=== PATIENT | male | born 1960 | race Caucasian/White ===

== ENCOUNTER 2019-12-24 09:00 | Outpatient (CLI) | payer BC, SELFPAY ==
--- NOTE | 2019-12-31 02:09 | SLEEP_ITS ---
Home Sleep Test DATE OF STUDY: 12/24/2019 REASON FOR THIS STUDY: Snoring, daytime fatigue, and grinding teeth. HISTORY: This patient is a 59-year-old male, 5 feet 9 inches tall, weighing 235 pounds with a body mass index of 34.7. His sleep complaints include being very tired on awakening for the last few years. He takes a nap on most days. The nap can last anywhere between 10 minutes to an hour. He has restless nighttime sleep with frequent position changes, rolling around, and loud snoring. It is frequently loud enough that others complain about it. He rarely awakens at night with heartburn, belching, or coughing. He never awakens at night short of breath. He occasionally has trouble sleeping with a cold. He does not gasp for breath at night. He rarely has breathing problems at night, witnessed by others. He occasionally sweats excessively at night. He does not notice his heart pounding or beating irregularly at night. He naps intentionally during the day. He does not fall asleep involuntarily. He does not fall asleep while driving and does not have loss of muscle tone with strong emotion. He does not have daytime difficulty due to excessive sleepiness. He does not feel paralyzed on waking or falling asleep. He occasionally has vivid dreamlike scenes upon awakening or falling asleep. He is never afraid to go to sleep. He occasionally has nightmares. He frequently remembers his dreams, frequently has racing thoughts. He occasionally feels sad, depressed, and anxious. He denies having muscular tension. He occasionally notices parts of his body jerking and he occasionally kicks at night. He denies crawly achy feelings in his legs and denies leg pain at night. He occasionally has morning jaw pain. He frequently grinds his teeth at night and has recently broken off some of his teeth due to grinding teeth. He occasionally is bothered by pain during the day, occasionally is awakened by pain at night. He never wakes up feeling stiff in the morning or have sore achy muscles. He occasionally wakes up with pain in the neck and spine. He has sinus headaches, fatigue, sexual problems, memory problems, feels unable to have a good time. Bedtime is 9:30 p.m., falling asleep within 30 minutes, usually less than 15 minutes, but he usually wakes up within an hour. He wakes 3 to 4 times at night and will be awake anywhere between 15 minutes or up to 3 hours. He falls asleep soon after waking as well as middle of the night and in the employee relations director hours, especially between 2 a.m. and 3 a.m. He wakes for the day at 6:30 a.m. When he awakens, he tries to return to sleep with relaxing thoughts. He has a low libido. He is currently retired. He does take naps and a short nap sometimes is refreshing. He feels better in the morning than other times a day. MEDICAL COMORBIDITIES: 1. Hyperlipidemia. 2. Hypertension. 3. Chronic right shoulder pain. 4. He previously had diabetes mellitus type 2, but no longer requires metformin as he has lost weight. MEDICATIONS: 1. Hydrochlorothiazide 25 mg a day. 2. Losartan 100 mg a day. 3. Atorvastatin 40 mg a day. 4. Allopurinol 300 mg a day. 5. Amlodipine 10 mg a day. HABITS: Previously smoked tobacco 25 years ago. Caffeine, 2 to 4 cups daily. Alcohol, 3 beers per month all at the same time. No recreational drugs. DESCRIPTION OF THE STUDY: On the [place] Sleepiness Scale, the score is 7. This was conducted as an unattended portable home sleep test using 4-channel monitoring including respiratory effort channel, oxygen desaturation channel, snoring channel, and heart rate channel. This study was scored using [facility] guidelines. Duration of the study with 8 hours 41 minutes. The apnea-hypopnea index is 10. Oxygen desaturation inde
== END 2019-12-24 09:01 | disposition home or self-care (01) ==
LOC: ANHCSM 09:01
PROVIDERS: PCP Family Medicine; Visit Provider Family Medicine
DX: G47.30 Sleep apnea, unspecified (principal)
CPT/HCPCS: 95806

== ENCOUNTER 2020-10-22 01:10 | Outpatient (CLI) | payer BC, SELFPAY ==
[2020-10-22 18:21] LABS: SARS-CoV-2 RNA PCR Negative
== END 2020-10-22 01:11 | disposition home or self-care (01) ==
LOC: ANHCOVIDDT 01:10
PROVIDERS: PCP Family Medicine; Visit Provider Internal Medicine Critical Care Medicine
DX: R68.89 Other general symptoms and signs (principal); Z20.828 Contact with and (suspected) exposure to other viral communicable diseases
CPT/HCPCS: 87635; C9803; U0003

== ENCOUNTER 2020-10-24 08:27 | Outpatient (CLI) | payer BC, SELFPAY ==
--- NOTE | 2020-12-08 16:18 | WPDSLEEPSTUD ---
Sleep Study Date of Study: 10/24/20 Ordering Provider: Rosalino Dent MD Interpreting Physician: Abigail Jones MD Sleep Study Type: CPAP Titration Height: 1.75 m Weight: 106.594 kg Body Mass Index: 34.7 Neck Circumference: 44.45 cm [place]: 9 Reason for Sleep Study Prior home sleep test on 12/24/2019 showing mild obstructive sleep apnea syndrome with an AHI of 10, desaturation to 75% with frequent snoring and 9% the study below 88% saturation, 45 minutes.With hypertension he is a candidate for treatment with PAP therapy. Sleep History Dinesh Greer is a 60 year old man with mild WAL[place]KA on a prior sleep study. His sleep complaints include being very tired on awakening for the last few years. He takes a nap on most days. The nap can last anywhere between 10 minutes to an hour. He has restless nighttime sleep with frequent position changes, rolling around, and loud snoring. It is frequently loud enough that others complain about it. He . He rarely awakens at night with heartburn, belching, or coughing. He never awakens at night short of breath. He occasionally has trouble sleeping with a cold. He does not gasp for breath at night. He rarely has breathing problems at night, witnessed by others. He occasionally sweats excessively at night. He does not notice his heart pounding or beating irregularly at night. He naps intentionally during the day. He does not fall asleep involuntarily. He does not fall asleep while driving and does not have loss of muscle tone with strong emotion. He does not have daytime difficulty due to excessive sleepiness. He does not feel paralyzed on waking or falling asleep. He occasionally has vivid dreamlike scenes upon awakening or falling asleep. He is never afraid to go to sleep. He occasionally has nightmares. He frequently remembers his dreams, frequently has racing thoughts. He occasionally feels sad, depressed, and anxious. He denies having muscular tension. He occasionally notices parts of his body jerking and he occasionally kicks at night. He denies crawly achy feelings in his legs and denies leg pain at night. He occasionally has morning jaw pain. He frequently grinds his teeth at night and has recently broken off some of his teeth due to grinding teeth. He occasionally is bothered by pain during the day, occasionally is awakened by pain at night. He never wakes up feeling stiff in the morning or have sore achy muscles. He occasionally wakes up with pain in the neck and spine. He has sinus headaches, fatigue, sexual problems, memory problems, feels unable to have a good time. Bedtime is 9:30 p.m., falling asleep within 30 minutes, usually less than 15 minutes, but he usually wakes up within an hour. He wakes 3 to 4 times at night and will be awake anywhere between 15 minutes or up to 3 hours. He falls asleep soon after waking as well as middle of the night and in the operator automated process hours, especially between 2 a.m. and 3 a.m. He wakes for the day at 6:30 a.m. When he awakens, he tries to return to sleep with relaxing thoughts. He has a low libido. He is currently retired. He does take naps and a short nap sometimes is refreshing. He feels better in the morning than other times a day. HABITS: Previously smoked tobacco 25 years ago. Caffeine, 2 to 4 cups daily. Alcohol, 3 beers per month all at the same time. No recreational drugs. [facility] Past Medical History Medical History Dyslipidemia Elevated PSA Essential (primary) hypertension Gout History of colon polyps History of type 2 diabetes mellitus Idiopathic gout Family History Family History Mother , at age 78 Cerebrovascular accident Hypertension Father , age 74 History of emphysema Other Diabetes mellitus Family history of coronary artery disease Gout Heart disease Soc
[2020-12-10 09:37] VITALS: BMI 34.7
== END 2020-10-24 08:28 | disposition home or self-care (01) ==
LOC: ANHCSM 08:35
PROVIDERS: PCP Family Medicine; Visit Provider Family Medicine
DX: G47.33 Obstructive sleep apnea (adult) (pediatric) (principal)
CPT/HCPCS: 95811

== ENCOUNTER 2020-12-02 01:09 | Outpatient (CLI) | payer BC, SELFPAY ==
[2020-12-02 19:22] LABS: SARS-CoV-2 RNA PCR Negative
== END 2020-12-02 01:10 | disposition home or self-care (01) ==
LOC: ANHCOVIDDT 01:10
PROVIDERS: PCP Family Medicine; Visit Provider Internal Medicine Gastroenterology
DX: Z01.812 Encounter for preprocedural laboratory examination (principal); Z20.822 Contact with and (suspected) exposure to COVID-19
CPT/HCPCS: C9803; U0003; U0005

== ENCOUNTER → 2020-12-30 03:37 | Outpatient (CLI) | payer BC, SELFPAY ==
[2020-12-31 18:18] LABS: SARS-CoV-2 RNA PCR Negative
== END ==
PROVIDERS: Family Provider Internal Medicine; PCP Family Medicine; Visit Provider Internal Medicine Gastroenterology
DX: Z01.812 Encounter for preprocedural laboratory examination (principal); Z20.822 Contact with and (suspected) exposure to COVID-19
CPT/HCPCS: C9803; U0003; U0005

== ENCOUNTER 2021-01-02 01:12 | Day surgery (SDC) | payer BC, SELFPAY ==
[2020-11-27 11:28] VITALS: BMI 34.4
--- NOTE | 2020-12-18 08:27 | PC.NURSE ---
Patient states there has been no medication or health history changes since last pre op interview. Patient given updated times and instructions on COVID and procedure day. Denies any questions at this time.
[2021-01-02 07:55] VITALS: BP 159/89; PULSE 62; RESP 18; TEMP 36.7; O2SAT 95; BMI 33.6
[2021-01-02] MEDS: LACTATED RINGERS 1,000 ML 150 ML IV CONT (08:02)
--- NOTE | 2021-01-02 09:03 | PM.HPGS ---
History of Present Illness History of Present Illness Consent: Risks, benefits, and alternatives have been discussed and questions answered. Patient agrees to proceed with procedure. Chief complaint: Neoplasm Screening Narrative: Dinesh Greer is a 60 year old male with colon polyp in 2013 Review of Systems Constitutional: Constitutional: Denies headache(s) and Denies weakness Eyes: Eyes: Denies blurry vision ENT: Reports Normal hearing present, Denies headache(s) and Denies neck pain Cardiovascular: Cardiovascular: Denies chest pain and Denies dyspnea Respiratory: Respiratory: Denies dyspnea Gastrointestinal: Gastrointestinal: Reports no additional gastrointestinal complaints Genitourinary: Genitourinary: Denies dysuria Musculoskeletal: Musculoskeletal: Denies neck pain Integumentary/Breasts: Skin/Breast: Denies dry skin Neurologic: Reports Normal hearing present, Denies headache(s) and Denies weakness Psychiatric: Psychiatric: Denies anxiety Endocrine: Endocrine: Denies change in body appearance Hematologic/Lymphatic: Hematologic/Lymphatic: Denies easy bleeding Allergic/Immunologic: Allergic/Immunologic: Denies urticaria PMFSH Past Medical History Medical History Dyslipidemia Elevated PSA Essential (primary) hypertension Gout History of colon polyps History of type 2 diabetes mellitus Idiopathic gout Family History Family History Mother , at age 78 Cerebrovascular accident Hypertension Father , age 74 History of emphysema Other Diabetes mellitus Family history of coronary artery disease Gout Heart disease Social History Social History Smoking packs per day: 1 Smoking cigarettes per day: 20.0 Years smoked: 15 Smoking pack-years: 15.00 Smoking status: Former smoker Tobacco type: cigarettes Smoking end date: 11/21/92 Alcohol intake: current Substance use: never Substance use type: does not use Living arrangements: with family Additional occupation/education comments: [employer] Spiritual care concerns: No Meds Home Medications and Allergies Home Medications Medication Instructions Recorded Confirmed Type allopurinol 300 mg tablet 300 mg PO DAILY #90 tablet 02/05/20 01/02/21 Rx atorvastatin 40 mg tablet 40 mg PO DAILY #90 tablet 02/05/20 01/02/21 Rx amlodipine 10 mg tablet See Rx Instructions .ROUTE 04/11/20 01/02/21 Rx .COMPLEX #90 tablet losartan 100 1 tablet PO DAILY #90 tablet 11/10/20 01/02/21 Rx mg-hydrochlorothiazide 25 mg tablet Allergies Allergy/AdvReac Type Severity Reaction Status Date / Time No Known Allergies Allergy Verified 01/02/21 07:52 Vital Signs Vital Signs - 24 hr 01/02/21 07:55 Temperature 98.1 F Pulse Rate 62 Respiratory Rate 18 Blood Pressure 159/89 H Pulse Oximetry 95 Exam Const: General: comfortable and no acute distress HENMT: General nose exam: Normal nares present Eyes: General: appearance normal, both eyes and all related structures Neck: Neck: no JVD Resp: Auscultation: clear to auscultation bilaterally Cardio: Rate: regular rate Rhythm: regular rhythm GI: Inspection: non-distended GI Palp: Yes Soft to palpation Skin: General skin exam: normal color Neuro: General: gait normal Speech: normal speech Extrem: General: normal to inspection Psych: Mental Status: mental status grossly normal Assessment and Plan Assessment and plan (1) Adenomatous colon polyp: Code(s): D12.6 - Benign neoplasm of colon, unspecified Status: Acute Assessment and Plan: proceed with colonoscopy
[2021-01-02 09:25] VITALS: BP 123/77; PULSE 74; RESP 19; O2SAT 93
[2021-01-02 09:35] VITALS: BP 137/80; PULSE 63; RESP 20; O2SAT 97
[2021-01-02 09:45] VITALS: BP 143/90; PULSE 60; RESP 19; O2SAT 96
== END 2021-01-02 09:55 | disposition home or self-care (01) ==
PROVIDERS: Family Provider Internal Medicine; PCP Family Medicine; Visit Provider Internal Medicine Gastroenterology
PROC: 0DJD8ZZ Inspection of Lower Intestinal Tract, Via Natural or Artificial Opening Endoscopic (ICD-10-PCS; CPT 45378; principal; 2021-01-02 09:00)
DX: Z12.11 Encounter for screening for malignant neoplasm of colon (principal); K63.5 Polyp of colon; K64.8 Other hemorrhoids; E78.5 Hyperlipidemia, unspecified; R97.20 Elevated prostate specific antigen [PSA]; M10.00 Idiopathic gout, unspecified site; Z87.891 Personal history of nicotine dependence
CPT/HCPCS: 45385; 88305; J2001; J2704; J7120

== ENCOUNTER 2021-03-18 13:51 | Outpatient (CLI) | payer BC, SELFPAY ==
--- NOTE | ~2021-03-18 | XR_ITS ---
EXAMINATION: XR lumbar spine 2-3V DATE: 03/18/2021 14:09 INDICATION: Low back pain. TECHNIQUE: 3 views of lumbar spine were obtained. COMPARISON: None. FINDINGS: There is 3 mm anterolisthesis of L5 on S1. There is mild chronic height loss of L5 vertebra l body posteriorly. There is mildly decreased disc height at L4-L5 and moderately decreased disc heig ht at L5-S1. There are chronic bilateral L5 pars defects. The facet joints are unremarkable. IMPRESSION: 1. Chronic bilateral L5 pars defects with grade 1 anterolisthesis of L5 on S1. 2. Moderate lower lumbar spondylosis. Reviewed, dictated and finalized at location A.
== END 2021-03-18 13:52 | disposition home or self-care (01) ==
PROVIDERS: PCP Family Medicine; Visit Provider Family Medicine
DX: M47.896 Other spondylosis, lumbar region (principal)
CPT/HCPCS: 72100

== ENCOUNTER 2022-10-25 09:37 | Outpatient (CLI) | payer BC, SELFPAY ==
[2022-10-25 19:04] LABS: Basophils Percent Auto 0.5 % (0.2-1.2); Eosinophils Absolute Auto 0.6 K/mm3 (0-0.3); Eosinophils Percent Auto 10.3 % (0-4.4); Hematocrit 45.1 % (42.0-52.0); Hemoglobin 14.7 g/dL (14.0-18.0); Immature Granulocyte Absolute 0.02 K/mm3 (0.00-0.031); Immature Granulocyte Percent A 0.3 % (0-0.5); Lymphocytes Absolute Auto 1.78 K/mm3 (0.9-3.2); Lymphocytes Percent Auto 31.1 % (18.3-44.2); Mean Corpuscular HGB Conc 32.6 g/dl (32-36); Mean Corpuscular Hemoglobin 30.9 pg (26-34); Mean Corpuscular Volume 94.9 fl (80-100); Mean Platelet Volume 11.8 fl (7.4-10.4); Monocytes Absolute Auto 0.4 K/mm3 (0.1-0.6); Monocytes Percent Auto 7.2 % (2.6-8.5); Neutrophils Absolute Auto 2.9 K/mm3 (1.3-6.7); Neutrophils Percent Auto 50.6 % (45.5-73.1); Platelet Count Result 222 k/mm3 (150-375); Red Blood Count 4.75 M/mm3 (4.6-6.20); Red Cell Distribution Width 14.4 % (11.5-14.5); White Blood Count 5.7 K/mm3 (4.5-10.0)
[2022-10-25 19:56] LABS: Alanine Aminotransferase 37 U/L (6-50); Albumin Level 4.7 g/dL (3.5-5.1); Alkaline Phosphatase 51 U/L (38-126); Anion Gap 12 mmol/L (8-16); Aspartate Amino Transferase 30 U/L (17-59); Bilirubin,Total 0.8 mg/dL (0.2-1.3); Blood Urea Nitrogen 22 mg/dL (9-20); Calcium 9.5 mg/dL (8.4-10.2); Carbon Dioxide 24 mmol/L (22-30); Chloride 105 mmol/L (98-107); Cholesterol 175 mg/dL (0-200); Estimated Glomerular Filt Rate > 60; Glucose 117 mg/dL (65-110); HDL Direct 38 mg/dL; Sodium 141 mmol/L (137-145); Triglycerides 179 mg/dL (<150); Uric Acid 6.9 mg/dL (3.5-8.5)
[2022-10-25 20:06] LABS: LDL Cholesterol Direct 92 mg/dL
[2022-10-25 20:42] LABS: Vitamin D 25 Hydroxy 45.2 ng/mL
== END 2022-10-25 09:38 | disposition home or self-care (01) ==
LOC: ANHGOSHLAB 09:40
PROVIDERS: PCP Family Medicine; Visit Provider Family Medicine
DX: Z00.00 Encounter for general adult medical examination without abnormal findings (principal); E55.9 Vitamin D deficiency, unspecified; I10 Essential (primary) hypertension; Z12.5 Encounter for screening for malignant neoplasm of prostate; M10.00 Idiopathic gout, unspecified site; R73.03 Prediabetes; E78.5 Hyperlipidemia, unspecified; E53.8 Deficiency of other specified B group vitamins
CPT/HCPCS: 36415; 80053; 80061; 82306; 82607; 83036; 84153; 84443; 84550; 85025; G0103

== ENCOUNTER 2023-04-25 09:23 | Outpatient (CLI) | payer BC, SELFPAY ==
[2023-04-25 20:37] LABS: Alanine Aminotransferase 44 U/L (6-50); Albumin Level 4.5 g/dL (3.5-5.1); Alkaline Phosphatase 50 U/L (38-126); Anion Gap 5 mmol/L (8-16); Aspartate Amino Transferase 45 U/L (17-59); Bilirubin,Total 1.1 mg/dL (0.2-1.3); Blood Urea Nitrogen 16 mg/dL (9-20); Calcium 9.4 mg/dL (8.4-10.2); Carbon Dioxide 34 mmol/L (22-30); Chloride 101 mmol/L (98-107); Estimated Glomerular Filt Rate > 60; Glucose 103 mg/dL (65-110); Potassium 4.5 mmol/L (3.4-5.0); Sodium 140 mmol/L (137-145)
[2023-04-25 21:45] LABS: Hemoglobin A1C 5.8 % (<5.7)
== END 2023-04-25 09:24 | disposition home or self-care (01) ==
LOC: ANHGOSHLAB 09:24
PROVIDERS: PCP Family Medicine; Visit Provider Family Medicine
DX: R73.03 Prediabetes (principal); E78.5 Hyperlipidemia, unspecified; I10 Essential (primary) hypertension
CPT/HCPCS: 36415; 80053; 83036

== ENCOUNTER 2023-10-31 09:49 | Outpatient (CLI) | payer MEDICARE, SELFPAY ==
[2023-10-31 18:58] LABS: Basophils Percent Auto 0.6 % (0.2-1.2); Eosinophils Absolute Auto 0.6 K/mm3 (0-0.3); Eosinophils Percent Auto 9.2 % (0-4.4); Hematocrit 43.9 % (42.0-52.0); Hemoglobin 14.2 g/dL (14.0-18.0); Immature Granulocyte Absolute 0.01 K/mm3 (0.00-0.031); Immature Granulocyte Percent A 0.2 % (0-0.5); Lymphocytes Absolute Auto 2.01 K/mm3 (0.9-3.2); Lymphocytes Percent Auto 31.5 % (18.3-44.2); Mean Corpuscular HGB Conc 32.3 g/dl (32-36); Mean Corpuscular Hemoglobin 30.1 pg (26-34); Mean Platelet Volume 11.9 fl (7.4-10.4); Monocytes Absolute Auto 0.4 K/mm3 (0.1-0.6); Monocytes Percent Auto 6.9 % (2.6-8.5); Neutrophils Absolute Auto 3.3 K/mm3 (1.3-6.7); Neutrophils Percent Auto 51.6 % (45.5-73.1); Platelet Count Result 227 k/mm3 (150-375); Red Blood Count 4.72 M/mm3 (4.6-6.20); Red Cell Distribution Width 14.5 % (11.5-14.5); White Blood Count 6.4 K/mm3 (4.5-10.0)
[2023-10-31 19:24] LABS: Alanine Aminotransferase 53 U/L (6-50); Albumin Level 4.4 g/dL (3.5-5.1); Alkaline Phosphatase 53 U/L (38-126); Anion Gap 9 mmol/L (8-16); Aspartate Amino Transferase 38 U/L (17-59); Bilirubin,Total 0.9 mg/dL (0.2-1.3); Blood Urea Nitrogen 18 mg/dL (9-20); Calcium 9.6 mg/dL (8.4-10.2); Carbon Dioxide 29 mmol/L (22-30); Chloride 103 mmol/L (98-107); Cholesterol 175 mg/dL (0-200); Estimated Glomerular Filt Rate > 60; Glucose 128 mg/dL (65-110); HDL Direct 37 mg/dL; Potassium 3.9 mmol/L (3.4-5.0); Sodium 141 mmol/L (137-145); Triglycerides 184 mg/dL (<150)
[2023-10-31 19:35] LABS: LDL Cholesterol Direct 101 mg/dL; Vitamin D 25 Hydroxy 33.8 ng/mL
[2023-10-31 19:58] LABS: Prostate Specific Antigen 5.9 ng/mL (< OR = 4.0)
== END 2023-10-31 09:50 | disposition home or self-care (01) ==
LOC: ANHGOSHLAB 09:50
PROVIDERS: PCP Family Medicine; Visit Provider Family Medicine
DX: E78.5 Hyperlipidemia, unspecified (principal); I10 Essential (primary) hypertension; Z12.5 Encounter for screening for malignant neoplasm of prostate; E53.8 Deficiency of other specified B group vitamins; E55.9 Vitamin D deficiency, unspecified; J30.2 Other seasonal allergic rhinitis; Z00.00 Encounter for general adult medical examination without abnormal findings
CPT/HCPCS: 36415; 80053; 80061; 82306; 82607; 84153; 84443; 85025; G0103

== ENCOUNTER 2023-12-12 12:18 | Outpatient (CLI) | payer MEDICARE, SELFPAY ==
--- NOTE | 2023-12-12 12:31 | ECHO_ITS ---
Patient Info Name: Dinesh Greer Age: 63 years : 1960 Gender: Male Ht: 69 in Wt: 230 lbs BSA: 2.29 m2 HR: 60 bpm BP: 144 / 82 mmHg Technical Quality: Good Exam Date: 12/12/2023 12:43 PM Exam Location: Echo Lab Patient Status: Outpatient Admit Date: 12/12/2023 Staff Ordering Physician: Rosalino Dent MD Fine Hairer: Katherine Anderson RDCS Attending Provider: Rosalino Dent MD Exam Type: CA echo doppler color flow Study Info Indications R01.1 - Cardiac murmur, unspecified Complete two-dimensional, color flow and Doppler transthoracic echocardiogram is performed. Summary 1. Complete two-dimensional, color flow and Doppler transthoracic echocardiogram is performed. 2. Left ventricular chamber dimension is normal. 3. Left ventricular systolic function is normal, estimated at 60-65%. 4. The left ventricular diastolic function is grade II diastolic dysfunction. 5. E/e' 10 is mildly elevated. 6. Global longitudinal strain is normal at -17.8%. 7. Left atrial chamber dimension is mildly enlarged. 8. No pulmonary hypertension, estimated pulmonary arterial systolic pressure is 33 mmHg. Left Ventricle E/e' 10 is mildly elevated. Global longitudinal strain is normal at -17.8%. Left ventricular chamber dimension is normal. Left ventricular systolic function is normal, estimated at 60-65%. The left ventricular diastolic function is grade II diastolic dysfunction. Right Ventricle Right ventricular systolic function is normal and with normal TAPSE 3.1 cm. Right ventricular chamber dimension is normal. Left Atria Left atrial chamber dimension is mildly enlarged. Right Atria Right atrial chamber dimension is normal. Aortic Valve The aortic valve is trileaflet. There is no aortic valve stenosis. There is no aortic valve regurgitation. Pulmonic Valve There is no pulmonic regurgitation. Mitral Valve There is no mitral valve stenosis. There is no mitral valve regurgitation. Tricuspid Valve There is no tricuspid valve regurgitation. No pulmonary hypertension, estimated pulmonary arterial systolic pressure is 33 mmHg. Pericardium/Pleural There is no pericardial effusion. Inferior Vena Cava Normal inferior vena cava with >50% collapse upon inspiration consistent with normal right atrial pressure, 5 mmHg. Aorta The aortic root size at the sinus of Valsalva is normal. Left Ventricular Outflow Tract Name Value Normal LVOT 2D LVOT Diameter 1.9 cm LVOT Doppler LVOT Peak Gradient 5 mmHg LVOT Mean Gradient 2 mmHg LVOT VTI 23 cm LVOT VTI/AV VTI Ratio 0.8 LVOT Stroke Volume 62 ml LVOT CO 3.5 l/min LVOT CI 1.5 l/min/m2 Pulmonic Valve Name Value Normal RVOT Doppler RVOT Peak Gradient 3 mmHg PV D
== END 2023-12-12 12:19 | disposition home or self-care (01) ==
LOC: ANHCARD 12:20
PROVIDERS: PCP Family Medicine; Visit Provider Family Medicine
DX: R01.1 Cardiac murmur, unspecified (principal); I10 Essential (primary) hypertension
CPT/HCPCS: 93306

== ENCOUNTER 2024-03-30 10:09 | Outpatient (CLI) | payer MEDICARE, SELFPAY ==
[2024-03-30 18:39] LABS: Alanine Aminotransferase 44 U/L (6-50); Albumin Level 4.4 g/dL (3.5-5.1); Alkaline Phosphatase 49 U/L (38-126); Anion Gap 5 mmol/L (4-12); Aspartate Amino Transferase 30 U/L (17-59); Bilirubin,Total 0.9 mg/dL (0.2-1.3); Blood Urea Nitrogen 19 mg/dL (9-20); Calcium 9.4 mg/dL (8.4-10.2); Carbon Dioxide 30 mmol/L (22-30); Chloride 104 mmol/L (98-107); Estimated Glomerular Filt Rate > 60; Glucose 113 mg/dL (65-110); Potassium 4.1 mmol/L (3.4-5.0); Sodium 139 mmol/L (137-145)
[2024-03-30 19:09] LABS: Hemoglobin A1C 5.8 % (<5.7)
[2024-04-02 15:43] LABS: PSA, Free 1.2 ng/mL; PSA, Total 4.4 ng/mL (< OR = 4.0); Percent Free Prostate Spec Ag 27 % (calc) (>25)
== END 2024-03-30 10:10 | disposition home or self-care (01) ==
LOC: ANHGOSHLAB 10:10
PROVIDERS: PCP Family Medicine; Visit Provider Family Medicine
DX: R74.01 Elevation of levels of liver transaminase levels (principal); I10 Essential (primary) hypertension; R73.03 Prediabetes; R97.20 Elevated prostate specific antigen [PSA]
CPT/HCPCS: 36415; 80053; 83036; 84153; 84154

== ENCOUNTER 2024-06-14 08:50 | Outpatient (CLI) | payer MEDICARE, SELFPAY ==
[2024-06-14 19:39] LABS: Basophils Absolute Auto 0.1 K/mm3 (0.0-0.1); Basophils Percent Auto 0.8 % (0.2-1.2); Eosinophils Absolute Auto 0.5 K/mm3 (0-0.3); Eosinophils Percent Auto 5.9 % (0-4.4); Hematocrit 42.7 % (42.0-52.0); Immature Granulocyte Absolute 0.08 K/mm3 (0.00-0.031); Immature Granulocyte Percent A 0.9 % (0-0.5); Lymphocytes Percent Auto 39.8 % (18.3-44.2); Mean Corpuscular HGB Conc 32.8 g/dl (32-36); Mean Corpuscular Hemoglobin 29.9 pg (26-34); Mean Corpuscular Volume 91.2 fl (80-100); Monocytes Absolute Auto 0.6 K/mm3 (0.1-0.6); Monocytes Percent Auto 6.7 % (2.6-8.5); Neutrophils Absolute Auto 3.9 K/mm3 (1.3-6.7); Neutrophils Percent Auto 45.9 % (45.5-73.1); Platelet Count Result 265 k/mm3 (150-375); Red Blood Count 4.68 M/mm3 (4.6-6.20); Red Cell Distribution Width 14.2 % (11.5-14.5); White Blood Count 8.5 K/mm3 (4.5-10.0)
[2024-06-14 19:58] LABS: Alanine Aminotransferase 66 U/L (6-50); Albumin Level 4.9 g/dL (3.5-5.1); Alkaline Phosphatase 53 U/L (38-126); Anion Gap 11 mmol/L (4-12); Aspartate Amino Transferase 54 U/L (17-59); Bilirubin,Total 1.3 mg/dL (0.2-1.3); Blood Urea Nitrogen 20 mg/dL (9-20); Calcium 9.4 mg/dL (8.4-10.2); Carbon Dioxide 28 mmol/L (22-30); Chloride 97 mmol/L (98-107); Cholesterol 161 mg/dL (0-200); Estimated Glomerular Filt Rate > 60; Glucose 120 mg/dL (65-110); HDL Direct 32 mg/dL; Sodium 136 mmol/L (137-145); Triglycerides 196 mg/dL (<150)
[2024-06-14 20:06] LABS: LDL Cholesterol Direct 83 mg/dL
[2024-06-14 20:20] LABS: Prostate Specific Antigen 5.8 ng/mL (< OR = 4.0)
[2024-06-14 20:53] LABS: Free T4 Free Thyroxine Reflex 1.36 ng/dL (0.78-2.19)
[2024-06-14 21:24] LABS: Hemoglobin A1C 6.3 % (<5.7)
[2024-06-15 04:03] LABS: Total Triiodothyronine (T3) 1.93 NG/ML (0.97-1.69)
== END 2024-06-14 08:51 | disposition home or self-care (01) ==
LOC: ANHGOSHLAB 08:51
PROVIDERS: PCP Family Medicine; Visit Provider Nurse Practitioner Family
DX: E55.9 Vitamin D deficiency, unspecified (principal); E78.5 Hyperlipidemia, unspecified; I10 Essential (primary) hypertension; M10.9 Gout, unspecified; R73.03 Prediabetes; R74.01 Elevation of levels of liver transaminase levels; R97.20 Elevated prostate specific antigen [PSA]; E03.9 Hypothyroidism, unspecified; Z12.5 Encounter for screening for malignant neoplasm of prostate; Z00.00 Encounter for general adult medical examination without abnormal findings
CPT/HCPCS: 36415; 80053; 80061; 83036; 84153; 84439; 84443; 84480; 85025; G0103

== ENCOUNTER 2024-06-26 09:03 | Outpatient (CLI) | payer MEDICARE, SELFPAY ==
[2024-06-26 14:19] LABS: Basophils Percent Auto 0.6 % (0.2-1.2); Eosinophils Absolute Auto 0.5 K/mm3 (0-0.3); Hematocrit 42.6 % (42.0-52.0); Hemoglobin 14.5 g/dL (14.0-18.0); Immature Granulocyte Absolute 0.01 K/mm3 (0.00-0.031); Immature Granulocyte Percent A 0.2 % (0-0.5); Lymphocytes Percent Auto 39.6 % (18.3-44.2); Mean Corpuscular Hemoglobin 31.7 pg (26-34); Mean Platelet Volume 11.9 fl (7.4-10.4); Monocytes Absolute Auto 0.5 K/mm3 (0.1-0.6); Monocytes Percent Auto 7.2 % (2.6-8.5); Neutrophils Percent Auto 45.4 % (45.5-73.1); Platelet Count Result 246 k/mm3 (150-375); Red Blood Count 4.58 M/mm3 (4.6-6.20); Red Cell Distribution Width 14.4 % (11.5-14.5); White Blood Count 6.6 K/mm3 (4.5-10.0)
[2024-06-26 14:47] LABS: Free T4 Free Thyroxine 1.12 ng/mL (0.78-2.19)
== END 2024-06-26 09:04 | disposition home or self-care (01) ==
LOC: ANHGOSHLAB 09:04
PROVIDERS: PCP Family Medicine; Visit Provider Nurse Practitioner Family
DX: E03.9 Hypothyroidism, unspecified (principal); R74.01 Elevation of levels of liver transaminase levels; R73.03 Prediabetes; E78.5 Hyperlipidemia, unspecified; I10 Essential (primary) hypertension
CPT/HCPCS: 36415; 84439; 84443; 85025

== ENCOUNTER → 2024-08-06 13:06 | Outpatient (REF) | payer MEDICARE, SELFPAY | LOC: ANHLAB 13:06 | PROVIDERS: PCP Family Medicine; Visit Provider Plastic Surgery | DX: Q18.1 Preauricular sinus and cyst (principal) | CPT/HCPCS: 88305 ==

== ENCOUNTER 2024-12-05 09:48 | Outpatient (CLI) | payer MEDICARE, SELFPAY ==
[2024-12-05 14:52] LABS: Basophils Absolute Auto 0.1 K/mm3 (0.0-0.1); Basophils Percent Auto 0.7 % (0.2-1.2); Eosinophils Absolute Auto 0.7 K/mm3 (0-0.3); Eosinophils Percent Auto 8.3 % (0-4.4); Hematocrit 46.4 % (42.0-52.0); Immature Granulocyte Absolute 0.03 K/mm3 (0.00-0.031); Immature Granulocyte Percent A 0.4 % (0-0.5); Lymphocytes Absolute Auto 2.48 K/mm3 (0.9-3.2); Lymphocytes Percent Auto 30.2 % (18.3-44.2); Mean Corpuscular HGB Conc 32.3 g/dl (32-36); Mean Corpuscular Hemoglobin 30.4 pg (26-34); Mean Corpuscular Volume 94.1 fl (80-100); Mean Platelet Volume 11.8 fl (7.4-10.4); Monocytes Absolute Auto 0.6 K/mm3 (0.1-0.6); Monocytes Percent Auto 7.7 % (2.6-8.5); Neutrophils Absolute Auto 4.3 K/mm3 (1.3-6.7); Neutrophils Percent Auto 52.7 % (45.5-73.1); Platelet Count Result 245 k/mm3 (150-375); Red Blood Count 4.93 M/mm3 (4.6-6.20); Red Cell Distribution Width 13.8 % (11.5-14.5); White Blood Count 8.2 K/mm3 (4.5-10.0)
[2024-12-05 16:20] LABS: Alanine Aminotransferase 38 U/L (6-50); Albumin Level 4.9 g/dL (3.5-5.1); Alkaline Phosphatase 47 U/L (38-126); Anion Gap 8 mmol/L (4-12); Aspartate Amino Transferase 48 U/L (17-59); Bilirubin,Total 1.1 mg/dL (0.2-1.3); Blood Urea Nitrogen 27 mg/dL (9-20); Calcium 10.4 mg/dL (8.4-10.2); Carbon Dioxide 31 mmol/L (22-30); Chloride 101 mmol/L (98-107); Cholesterol 181 mg/dL (0-200); Estimated Glomerular Filt Rate > 60; Glucose 106 mg/dL (65-110); HDL Direct 33 mg/dL; Potassium 4.3 mmol/L (3.4-5.0); Sodium 140 mmol/L (137-145); Triglycerides 257 mg/dL (<150); Uric Acid 7.4 mg/dL (3.5-8.5)
[2024-12-05 16:33] LABS: LDL Cholesterol Direct 94 mg/dL
[2024-12-05 16:51] LABS: Prostate Specific Antigen 5.2 ng/mL (< OR = 4.0)
[2024-12-05 17:07] LABS: Vitamin D 25 Hydroxy 39.6 ng/mL
[2024-12-05 18:05] LABS: Free T4 Free Thyroxine Reflex 1.01 ng/dL (0.78-2.19)
[2024-12-05 18:55] LABS: Total Triiodothyronine (T3) 1.52 NG/ML (0.97-1.69)
[2024-12-05 19:20] LABS: Hemoglobin A1C 6.4 % (<5.7)
== END 2024-12-05 09:49 | disposition home or self-care (01) ==
LOC: ANHGOSHLAB 09:49
PROVIDERS: PCP Family Medicine; Visit Provider Family Medicine
DX: E78.5 Hyperlipidemia, unspecified (principal); I10 Essential (primary) hypertension; Z00.00 Encounter for general adult medical examination without abnormal findings; E53.8 Deficiency of other specified B group vitamins; Z12.5 Encounter for screening for malignant neoplasm of prostate; E55.9 Vitamin D deficiency, unspecified; R73.03 Prediabetes; M10.00 Idiopathic gout, unspecified site
CPT/HCPCS: 36415; 80053; 80061; 82306; 82607; 83036; 84153; 84439; 84443; 84480; 84550; 85025; G0103

== ENCOUNTER 2024-12-28 11:09 | Outpatient (CLI) | payer MEDICARE, SELFPAY ==
--- NOTE | ~2024-12-28 | US_ITS ---
EXAMINATION: US aorta [facility] DATE: 12/28/2024 12:03 INDICATION: Encounter for screening for cardiovascular disorder is TECHNIQUE: Grayscale, color Doppler, and pulsed Doppler images of the aorta and common iliac arteries were obtained. COMPARISON: None. FINDINGS: The proximal aorta measures 2.0 cm. The mid aorta measures 2.5 cm. The distal aorta measures 1.7 cm. The right common iliac artery measures 1.1 cm. The left common iliac artery measures 1.1 cm. IMPRESSION: 1. Normal caliber abdominal aorta. Reviewed, dictated and finalized at location B. ASSOCIATE
== END 2024-12-28 11:10 | disposition home or self-care (01) ==
PROVIDERS: PCP Family Medicine; Visit Provider Family Medicine
DX: Z13.6 Encounter for screening for cardiovascular disorders (principal); Z87.891 Personal history of nicotine dependence
CPT/HCPCS: 76706

== ENCOUNTER 2025-05-29 09:01 | Outpatient (CLI) | payer MEDICARE, SELFPAY ==
[2025-05-29 21:12] LABS: Alanine Aminotransferase 63 U/L (6-50); Albumin Level 4.7 g/dL (3.5-5.1); Alkaline Phosphatase 44 U/L (38-126); Anion Gap 9 mmol/L (4-12); Aspartate Amino Transferase 47 U/L (17-59); Bilirubin,Total 1.0 mg/dL (0.2-1.3); Blood Urea Nitrogen 18 mg/dL (9-20); Calcium 9.7 mg/dL (8.4-10.2); Carbon Dioxide 30 mmol/L (22-30); Chloride 102 mmol/L (98-107); Estimated Glomerular Filt Rate > 60; Glucose 132 mg/dL (65-110); Potassium 4.4 mmol/L (3.4-5.0); Sodium 141 mmol/L (137-145); Total Protein 8.0 g/dL (6.3-8.2)
[2025-05-29 21:41] LABS: Prostate Specific Antigen 6.3 ng/mL (< OR = 4.0)
[2025-05-29 21:54] LABS: Hemoglobin A1C 6.4 % (<5.7)
== END 2025-05-29 09:02 | disposition home or self-care (01) ==
LOC: ANHGOSHLAB 09:04
PROVIDERS: PCP Family Medicine; Visit Provider Family Medicine
DX: R73.03 Prediabetes (principal); I10 Essential (primary) hypertension; R97.20 Elevated prostate specific antigen [PSA]; Z12.5 Encounter for screening for malignant neoplasm of prostate
CPT/HCPCS: 36415; 80053; 83036; 84153; G0103